=== PATIENT | male | born 1995 | race Caucasian/White ===

== ENCOUNTER 2016-08-07 05:16 | Emergency (ER) | payer BC ==
[~2016-08-07] VITALS: Ht 172.7 cm; Wt 86.0 kg
[2016-08-07 05:31] VITALS: TEMP 36.5; O2SAT 100; Ht 172.7 cm; Wt 86.0 kg
--- NOTE | 2016-08-07 05:52 | EMERGENCY ROOM VISIT NOTE ---
History Report prepared by Frankibsita: Cheri Segura Under the Supervision of: Dr. Forest Riggs M.D. 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 The patient was found sleeping outside on campus. He admits to drinking 5-6 alcoholic beverages. He denies trying to hurt himself by drinking. History is limited secondary to intoxication. 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 Past Medical & Surgical Medical Problems: (1) Anxiety (2) Bipolar disorder (3) Depression Family History Unobtainable secondary to intoxication. Social History Alcohol Use: occasionally Occupation Status: [employer] Current/Historical Medications Scheduled Amphetamine-Dextroamphetamine 20MG (Adderall Xr 20MG), 20 MG PO DAILY [place] Carbonate ([place] Carbonate), 300 MG PO BID Sertraline (Zoloft), 100 MG PO BID Scheduled PRN Zolpidem Tartrate (Ambien), 10 MG PO HS PRN for Sleep Allergies Coded Allergies: Maple Tree (Verified Allergy, Unknown, NASAL CONGESTION, 08/07/16) White Tol[place] Tree (Verified Allergy, Unknown, NASAL CONGESTION, 08/07/16) Physical Exam Vital Signs Date Time Temp Pulse Resp B/P Pulse Ox O2 Delivery O2 Flow Rate FiO2 08/07/16 06:58 114 16 151/95 100 Room Air 08/07/16 05:31 36.5 87 18 138/63 99 Room Air 08/07/16 05:31 100 Room Air 08/07/16 05:29 93 Physical Exam GENERAL: Patient is moderately intoxicated. Smells of alcohol. Well appearing and in no acute distress. Vomit over face and hair. HEAD: No evidence of Trauma. AT/NC EYES: Injected conjunctiva. Normal EOM. Pupils equal/reactive. ENT: Mucous membranes moist, no nasal congestion, . NECK: No step-offs, no adenopathy, no meningismus, trachea is midline. LUNGS: No dyspnea. Clear to auscultation and equal bilaterally. No wheeze, no rhonchi. HEART: Regular rate and rhythm. No murmurs, rubs, gallops appreciated. ABDOMEN: Soft, nontender, bowel sounds positive, no masses appreciated, no peritonitis. BACK: No midline tenderness, no CVA tenderness EXTREMITIES: Normal motion all extremities, no cyanosis, no edema. Extremities are cool. NEUROLOGIC: Intoxicated. Alert, oriented. No acute motor or sensory deficits, no focal weakness, cranial nerves grossly intact. SKIN: No rash, no jaundice, no diaphoresis. Medical Decision & Procedures Laboratory Results 08/07/16 05:55 Test 08/07/16 05:55 Anion Gap 8.0 mmol/L (3-11) Est Creatinine Clear Calc Drug Dose 95.1 ml/min Estimated GFR () 89.8 Estimated GFR (Non- 77.5 BUN/Creatinine Ratio 9.2 (10-20) Calcium Level 8.5 mg/dl (8.5-10.1) Chemistry Specimen Hemolysis Ethyl Alcohol mg/dL 299.0 mg/dl (0-3) ED Course 0521: The patient was evaluated in room A9. A complete history and physical exam was performed. 0620: I reassessed the patient. He was awake and wandering around the ED. He was escorted back to his room. 0830: Reevaluated the patient. Discussed results and discharge instructions: He verbalized understanding and agreement. The patient is ready for discharge. Medical Decision Differential: Alcohol Intoxication, Drug Intoxication, Electrolyte Abnormality, Trauma, Intracranial Event, Toxicological, Excited Delirium, Serotonin Syndrome , amongst other pathologies entertained. 21 yr old intoxicated male brought in by EMS after being found intoxicated and unresponsive on campus across from [facility]. Patient with no evidence nor history for trauma. Protecting airway and breathing comfortably throughout ED stay. EtOH positive. Somewhat agitated that can't leave by himself but with Etoh of 300 at 6 am I made it clear he would not be leaving til afternoon unless he had a sober friend here to take him home. Monitored and discharged with sober friend who arrived. Impression Primary Impression: Alcohol abuse Additional Impression: Alcohol intoxication Scribe Attestation The scribe's documentation has been prepared under my direction and personally reviewed by me in its entirety. I confirm that the note above accurately reflects all work, treatment, procedures, and medical decision making performed by me. Departure Information Dispostion Home / Self-Care Patient Instructions ED Alcohol Intoxication, My [facility] Problem Qualifiers Additional Impression: Alcohol intoxication Complication of substance-induced condition: uncomplicated Qualified Codes: F10.120 - Alcohol abuse with intoxication, uncomplicated
[2016-08-07] MEDS ORDERED: ZOLP10TA PO (06:33)
[2016-08-07] MEDS ORDERED: AMPH20CA3 PO (06:33)
[2016-08-07] MEDS ORDERED: LITH300T2 PO (06:33)
[2016-08-07] MEDS ORDERED: SERT-234 PO (06:33)
[2016-08-07 06:39] LABS: BLOOD UREA NITROGEN 12 mg/dl (7-18); BUN/CREATININE RATIO 9.2 (10-20); CALCIUM 8.5 mg/dl (8.5-10.1); CARBON DIOXIDE 28 mmol/L (21-32); CHLORIDE 108 mmol/L (98-107); GLUCOSE 91 mg/dl (70-99); SODIUM 144 mmol/L (136-145)
[2016-08-07 07:57] VITALS: BP 158/89; PULSE 111; O2SAT 98
== END 2016-08-07 07:59 | disposition home or self-care (01) ==
LOC: C.EDA 05:18
DX: F10.120 Alcohol abuse with intoxication, uncomplicated (principal); F31.9 Bipolar disorder, unspecified; F32.9 Major depressive disorder, single episode, unspecified; F41.9 Anxiety disorder, unspecified

== ENCOUNTER 2016-08-13 07:19 | Emergency (ER) | payer BC ==
[~2016-08-13] VITALS: Ht 182.9 cm; Wt 81.8 kg
[~2016-08-13 07:19] MED LIST: AMPH20CA3 PO; LITH300T2 PO; SERT-234 PO; ZOLP10TA PO
[2016-08-13] MEDS ORDERED: LORAZEPAM 2 MG/ML 1 ML VIAL ONE (07:22)
[2016-08-13] MEDS ORDERED: HALOPERIDOL LACTATE 5 MG/ML 1 ML VIAL ONE (07:22)
[2016-08-13] MEDS ORDERED: HALOPERIDOL LACTATE 5 MG/ML 1 ML VIAL IM STA (07:23)
[2016-08-13] MEDS ORDERED: LORAZEPAM 2 MG/ML 1 ML VIAL IM ONE (07:30)
--- NOTE | 2016-08-13 07:40 | EMERGENCY ROOM VISIT NOTE ---
History Report prepared by Marilu: Felipe Khan Under the Supervision of: Dr. Tadeo Krishna M.D. First contact with patient: 07:23 Stated Complaint: ALCOHOL OVERDOSE History of Present Illness The patient is a 21 year old male who presents to the Emergency Room with complaints of a persistent alcohol overdose that began prior to arrival this morning. He does admit to drinking "barely 3 drinks". The patient says that he does not know why he is here. He notes that he is not even "blacked out". The patient wants to be discharged in time for class. Per [place] [employer], the patient was found drunk in a stairwell. He says he was not trying to hurt himself. 2 days ago, the patient was found drunk outside [employer] and was brought here. He had an alcohol of 300. The patient was discharged home with a sober female friend. History limited secondary to patient's intoxication. Source of History: patient, police History Limited By: intoxication Onset: Prior to arrival this morning Position: other (global - alcohol overdose) Symptom Intensity: patient says he "barely had 3 drinks" Timing: other (persistent) Note: Patient notes that he is not "blacked out". No associated symptoms noted. Review of Systems ROS limited secondary to patient's intoxication. 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 Current/Historical Medications Scheduled Amphetamine-Dextroamphetamine 20MG (Adderall Xr 20MG), 20 MG PO DAILY [place] Carbonate (Twain Carbonate), 300 MG PO BID Sertraline (Zoloft), 100 MG PO BID Scheduled PRN Zolpidem Tartrate (Ambien), 10 MG PO HS PRN for Sleep Allergies Coded Allergies: Maple Tree (Verified Allergy, Unknown, NASAL CONGESTION, 08/07/16) White [place] (Verified Allergy, Unknown, NASAL CONGESTION, 08/07/16) Physical Exam Vital Signs Date Time Temp Pulse Resp B/P Pulse Ox O2 Delivery O2 Flow Rate FiO2 08/13/16 14:54 110 18 110/74 99 08/13/16 13:02 114 18 124/81 98 Room Air 08/13/16 11:43 122 18 124/67 99 Room Air 08/13/16 11:05 121 08/13/16 10:36 123 18 122/73 96 Room Air 08/13/16 09:29 125 18 128/64 98 Nasal Cannula 2.0 08/13/16 08:14 127 18 133/57 96 Room Air 08/13/16 08:13 95 Room Air 08/13/16 07:53 153 08/13/16 07:50 36.6 155 24 171/114 98 Room Air Physical Exam General: Well developed well nourished agitated young male who smells of alcohol , is intoxicated, being held down by security guards yelling and screaming, breathing comfortably on room air. Normal speech HEENT: Normal cephalic atraumatic. Pupils are equal round and reactive to light. Extraocular movements are intact. Oropharynx is pink with moist mucous membranes. No swelling of the mouth lips or tongue. Neck: Supple with a midline trachea. No meningeal signs or stiffness, no JVD or bruits. No Stridor. Chest: Clear to auscultation bilaterally. No wheezes or rhonchi. No increased work of breathing. Heart: regular rate and rhythm. Abdomen: Soft nontender, nondistended without rebound guarding or rigidity. Extremities: No cyanosis clubbing or edema. No calf tenderness or assymetry Spine/Back. Non tender to palpation. No CVA tenderness Skin: Good turgor without rashes. Neurologic exam: Cranial nerves two through 12 are intact. Motor and sensation are intact and symmetrical throughout. Agitated, answers most questions appropriately but intoxicated. Medical Decision & Procedures Laboratory Results 08/13/16 08:42 Red Blood Count 5.17, Mean Corpuscular Volume 92.1, Mean Corpuscular Hemoglobin 33.5, Mean Corpuscular Hemoglobin Concent 36.3, Mean Platelet Volume 11.3, Neutrophils (%) (Auto) 81.7, Lymphocytes (%) (Auto) 12.2, Monocytes (%) (Auto) 4.8, Eosinophils (%) (Auto) 0.3, Basophils (%) (Auto) 0.4, Neutrophils # (Auto) 11.50, Lymphocytes # (Auto) 1.72, Monocytes # (Auto) 0.67, Eosinophils # (Auto) 0.04, Basophils # (Auto) 0.05 08/13/16 08:10 Test 08/13/16 08:10 08/13/16 08:42 Anion Gap 23.0 mmol/L (3-11) Est Creatinine Clear Calc Drug Dose 84.8 ml/min Estimated GFR () 75.5 Estimated GFR (Non- 65.1 BUN/Creatinine Ratio 8.3 (10-20) Calcium Level 8.6 mg/dl (8.5-10.1) Total Bilirubin 0.4 mg/dl (0.2-1) Direct Bilirubin mg/dl (0-0.2) Aspartate Amino Transf (AST/SGOT) 37 U/L (15-37) Alanine Aminotransferase (ALT/SGPT) 44 U/L (12-78) Alkaline Phosphatase 117 U/L (45-117) Total Protein 8.3 gm/dl (6.4-8.2) Albumin 4.6 gm/dl (3.4-5.0) Lipase 185 U/L (73-393) Chemistry Specimen Hemolysis Salicylates Level < 1.7 mg/dl (2.8-20) Acetaminophen Level < 2 ug/ml (10-30) Twain Level 0.4 mMOL/L (0.6-1.2) Ethyl Alcohol mg/dL 278.0 mg/dl (0-3) White Blood Count 14.07 K/uL (4.8-10.8) Red Blood Count 5.17 M/uL (4.7-6.1) Hemoglobin 17.3 g/dL (14.0-18.0) Hematocrit 47.6 % (42-52) Mean Corpuscular Volume 92.1 fL (80-100) Mean Corpuscular Hemoglobin 33.5 pg (25-34) Mean Corpuscular Hemoglobin Concent 36.3 g/dl (32-36) Platelet Count 232 K/uL (130-400) Mean Platelet Volume 11.3 fL (7.4-10.4) Neutrophils (%) (Auto) 81.7 % Lymphocytes (%) (Auto) 12.2 % Monocytes (%) (Auto) 4.8 % Eosinophils (%) (Auto) 0.3 % Basophils (%) (Auto) 0.4 % Neutrophils # (Auto) 11.50 K/uL (1.4-6.5) Lymphocytes # (Auto) 1.72 K/uL (1.2-3.4) Monocytes # (Auto) 0.67 K/uL (0.11-0.59) Eosinophils # (Auto) 0.04 K/uL (0-0.5) Basophils # (Auto) 0.05 K/uL (0-0.2) RDW Standard Deviation 41.8 fL (36.4-46.3) RDW Coefficient of Variation 12.3 % (11.5-14.5) Immature Granulocyte % (Auto) 0.6 % Immature Granulocyte # (Auto) 0.09 K/uL (0.00-0.02) Laboratory studies as stated above per my review. Medications Administered Medications (Trade) Dose Ordered Sig/Kalpesh Route Start Time Stop Time Status Last Admin Dose Admin Lorazepam (Ativan Inj) 2 mg STK-MED ONCE .ROUTE 08/13/16 07:22 2 07:24 DC 08/13/16 07:22 1 MG Haloperidol Lactate (Haldol Inj) 5 mg STK-MED ONCE .ROUTE 08/13/16 07:22 08/13/16 07:24 DC 08/13/16 07:22 5 MG ED Course 0722: Past medical records reviewed. The patient was evaluated in room B6, and a history and physical examination were performed. 0723: Ordered Haldol Inj 5 mg IM. 0730: Ordered Ativan Inj 1 mg IM. 0811: I reevaluated the patient and he got some sedation and appears more calm. 1421: I reevaluated the patient and he is waking up and feels ready to go home. 1439: Upon reevaluation, the patient is resting comfortably. He denies any suicidal attempt or thought. I discussed the results and treatment plan with him. He verbalized agreement of the treatment plan. The patient was discharged home. Medical Decision Differential diagnoses include: intoxication, overdose, toxicologic process, electrolyte or metabolic abnormality. This patient comes in as described above. He was found intoxicated and belligerent. When I saw him when they brought him, he was screaming and yelling and security guards were restraining him I talked to him to try to de- escalate him calm down he started to but didn't started screaming again. I did have to give him Haldol 5 mg IM and Ativan 1 mg IM for safety of the patient as well as staff. He was observed for multiple hours he remained calm with this medication and slowly sobered up his alcohol level was elevated. he has no significant electrolyte or metabolic abnormalities while he was here in the ER. I was able talked to him is much more calm. he denies that he has any suicidal ideations or attempts and does not feel that he needs to talk psychiatry also recommend they talk to somebody about alcohol use or potentially rehabilitation as this is his second alcohol intoxication recently and he declines. He says he is already going to follow-up with the student health drinking program. He did get a sober friend. he denies any physical complaints .he'll be discharged home. he should not drinking more alcohol and return if any new problems or concerns. Impression Primary Impression: Alcohol intoxication Additional Impression: Altered mental status Scribe Attestation The scribe's documentation has been prepared under my direction and personally reviewed by me in its entirety. I confirm that the note above accurately reflects all work, treatment, procedures, and medical decision making performed by me. Departure Information Dispostion Home / Self-Care Referrals No Doctor, Assigned (PCP) Forms HOME CARE DOCUMENTATION FORM, IMPORTANT VISIT INFORMATION Additional Instructions Rest. Drink plenty of fluids. Do not drink anymore alcohol. Return if: Worsening of symptoms, thoughts of hurting yourself or others, any new problems or concerns. Problem Qualifiers
[2016-08-13 07:50] VITALS: TEMP 36.6; Ht 182.9 cm; Wt 81.8 kg
[2016-08-13 08:13] VITALS: O2SAT 95
[2016-08-13 08:49] LABS: ALKALINE PHOSPHATASE 117 U/L (45-117); ALT/SGPT 44 U/L (12-78); AST/SGOT 37 U/L (15-37); BLOOD UREA NITROGEN 12 mg/dl (7-18); BUN/CREATININE RATIO 8.3 (10-20); CALCIUM 8.6 mg/dl (8.5-10.1); CARBON DIOXIDE 14 mmol/L (21-32); CHLORIDE 104 mmol/L (98-107); GLUCOSE 120 mg/dl (70-99); POTASSIUM 3.3 mmol/L (3.5-5.1); SODIUM 141 mmol/L (136-145)
[2016-08-13 08:53] LABS: LITHIUM 0.4 mMOL/L (0.6-1.2)
[2016-08-13 08:53] LABS: BASO % 0.4 %; BASO ABS # 0.05 K/uL (0-0.2); COMPLETE YES; EOS % 0.3 %; HEMATOCRIT 47.6 % (42-52); IG% 0.6 %; LYMPH % 12.2 %; LYMPH ABS # 1.72 K/uL (1.2-3.4); MEAN CELL VOLUME 92.1 fL (80-100); MEAN CORPUSCULAR HEMOGLOBIN 33.5 pg (25-34); MEAN CORPUSCULAR HGB CONC 36.3 g/dl (32-36); MEAN PLATELET VOLUME 11.3 fL (7.4-10.4); MONO % 4.8 %; NEUT % 81.7 %; PLATELET COUNT 232 K/uL (130-400); RED BLOOD COUNT 5.17 M/uL (4.7-6.1); WHITE BLOOD COUNT 14.07 K/uL (4.8-10.8)
[2016-08-13 08:57] LABS: ACETAMINOPHEN < 2 ug/ml (10-30)
[2016-08-13 14:54] VITALS: BP 110/74; PULSE 110; O2SAT 99
== END 2016-08-13 14:55 | disposition home or self-care (01) ==
LOC: EDBD 07:19 → C.EDB 07:24
DX: F10.129 Alcohol abuse with intoxication, unspecified (principal); F41.9 Anxiety disorder, unspecified; F31.9 Bipolar disorder, unspecified; F17.210 Nicotine dependence, cigarettes, uncomplicated; Z79.899 Other long term (current) drug therapy; Y90.9 Presence of alcohol in blood, level not specified